=== PATIENT | male | born 1985 | race Caucasian/White ===

== ENCOUNTER → 2024-12-14 | Outpatient (CLI) | payer OTHER ==
--- NOTE | 2024-12-14 10:30 | US ---
EXAMINATION TYPE: US scrotum with doppler. DATE OF EXAM: 12/14/2024 COMPARISON: NONE CLINICAL INDICATION: Male, 39 years old with history of N50.811 TESTICULAR PAIN; Right teste pain. N o swelling or redness. TECHNIQUE: Grayscale, color Doppler and spectral Doppler imaging of the scrotum. FINDINGS: EXAM MEASUREMENTS: TESTICLES: Right Testicle: 3.7 x 3.9 x 2.3 cm cm Left Testicle: 3.5 x 3.5 x 2.3 cm EPIDIDYMIS HEAD: Right Epididymis: 0.9 x 1.6 x 1.3 cm- Anechoic lesions seen with largest= 0.8 x 1.2 x 0.8 cm Left Epididymis: 1.0 x 0.8 x 0.8 cm Doppler performed to assess for testicular vascularity; good bilateral color flow and spectral wavefo glynn are seen. Presence of hydroceles: no Presence of varicoceles: no IMPRESSION: No evidence for acute process. Appropriate arterial and venous spectral waveforms to the testes. [facility], , 12/14/2024 10:28 AM
--- NOTE | 2024-12-14 10:31 | US ---
EXAMINATION TYPE: US groin RT DATE OF EXAM: 12/14/2024 COMPARISON: NONE CLINICAL INDICATION: Male, 39 years old with history of N50.811 TESTICULAR PAIN; Right groin pain reji t radiated to right teste. TECHNIQUE: Sonographic images taken. FINDINGS: Right groin scanned. Lymph nodes seen with largest short axis = 1.0 cm and cortical thick ness= within normal limits. Valsalva performed. No sonographic sign of hernia. IMPRESSION: As above. No bowel containing hernia. No suspicious findings seen. [facility], , 12/14/2024 10:29 AM
== END | disposition home or self-care (01) ==
LOC: RADUSWWP 09:35
PROVIDERS: ATTEND Family Medicine
DX: N50.811 Right testicular pain (principal)
CPT/HCPCS: 76870; 93975